=== PATIENT | female | born 1935 | race Caucasian/White ===

== ENCOUNTER 2018-09-19 19:51 | Inpatient (IN) | payer MEDICARE, MEDICAID ==
[~2018-09-19] VITALS: Ht 160 cm; Wt 38.1 kg
[2018-09-19] MEDS ORDERED: MAGN400O6 PO (20:02)
[2018-09-19] MEDS ORDERED: BISA10SU61 RC (20:02)
[2018-09-19] MEDS ORDERED: MEMA5TAB PO (20:02)
[2018-09-19] MEDS ORDERED: ACET-2154 PO (20:02)
[2018-09-19] MEDS ORDERED: MIRT15TA PO (20:02)
[2018-09-19] MEDS ORDERED: DOCU-141 PO (20:02)
[2018-09-19] MEDS ORDERED: ACET650S24 RC (20:02)
[2018-09-19] MEDS ORDERED: POTA-10 PO (20:02)
[2018-09-19] MEDS ORDERED: ERGO500040 PO (20:03)
--- NOTE | 2018-09-19 20:14 | NUR ---
Patient BIB [facility] unit [facility] from [facility] on 5150 hold for GD. Patient upon arrival unpleasant, refusing to have any procedure done. No distress noted.
[2018-09-19 20:42] LABS: *BILIRUBIN,URIN 1+ (NEGATIVE); *BLOOD, URINE NEGATIVE (NEGATIVE); *CLARITY,URINE SLIGHTLY CLOUDY (CLEAR); *KETONES,URINE TRACE (NEGATIVE); *UROBILINOGEN,URINE 0.2 E.U./dl (NORMAL); LEUKOCYTE ESTERASE ,URINE 2+ (NEGATIVE); NITRITE, URINE POSITIVE (NEGATIVE); UGLUCOSE NEGATIVE (NEGATIVE)
--- NOTE | 2018-09-19 20:43 | NUR ---
Patient refusing blood draw. Dr Sotomayor aware. Paged Eppic panel. Waiting for Selin Niño NP to call back.
--- NOTE | 2018-09-19 20:52 | NUR ---
Kong ruelas in EDM - 09/19/18 at 2104 by [id number] Selin Niño NP from [facility] group here to eval patient and speak to DR Pham. Olmos to admit MHU without blood
--- NOTE | 2018-09-19 20:52 | NUR ---
Selin Niño NP from [facility] group here to eval patient and speak to Dr Sotomayor. [place] HOLGUIN ok to admit patient to MHU without blood work being done in the ER due to patient refusing any procedure done
[2018-09-19 20:55] LABS: *COLOR,URINE DARK YELLOW (YELLOW)
[2018-09-19 20:57] LABS: SQUAMOUS EPITHELIAL CELL,UR FEW /HPF (NONE SEEN); WBC,URINE 50-80 /HPF (0-3)
[2018-09-19 20:58] LABS: BACTERIA,URINE MANY /HPF (NONE SEEN); MUCUS,URINE MODERATE /LPF (0-FEW)
[2018-09-19 21:00] LABS: *AMPHETAMINE, URINE NEGATIVE (NEGATIVE); *BARBITURATE, URINE NEGATIVE (NEGATIVE); *CANNABINOID, URINE NEGATIVE (NEGATIVE); *COCCAINE, URINE NEGATIVE (NEGATIVE); *OPIATE, URINE NEGATIVE (NEGATIVE); *PHENCYCLIDINE SCREEN,URINE NEGATIVE (NEGATIVE)
[2018-09-19] MEDS ORDERED: SULFAMETH/TRIMETH 800/160 MG TABLET PO ONE (21:00)
--- NOTE | 2018-09-19 21:03 | NUR ---
Patient refused PO antibiotic. Dr Sotomayor Aware
--- NOTE | 2018-09-19 21:25 | NUR ---
TRANSFERED TO [facility]
--- NOTE | 2018-09-19 21:45 | NUR ---
Admission note: Received patient from ED via gurney. Awake and alert but confused. States she " Lives in the dorms at her school". When asked if anyone to notify , patient stated ' No I do not have any family'. Patient calm and cooperative so far. No acute distress noted. Will monitor for safety and continue to reorient patient to the environment.
[2018-09-19] MEDS ORDERED: MAG HYDROX/AL HYDROX/SIMETH 30 ML LIQUID UDC PO PRN (22:00)
[2018-09-19] MEDS ORDERED: MAGNESIUM HYDROXIDE 30 ML LIQUID UDC PO PRN (22:00)
[2018-09-19] MEDS ORDERED: ACETAMINOPHEN 325 MG TABLET PO PRN (22:00)
[2018-09-19] MEDS ORDERED: TEMAZEPAM 7.5 MG CAPSULE PO PRN (22:00)
[2018-09-20 07:30] VITALS: BP 111/51
[2018-09-20] MEDS ORDERED: BISACODYL 10 MG SUPP.RECT RC PRN (09:30)
[2018-09-20 09:31] LABS: CARBON DIOXIDE 24 mmol/L (21-32); CHLORIDE 114 mmol/L (98-107); CREATININE 1.3 mg/dL (0.6-1.3); GLUCOSE 90 mg/dL (74-106); UREA NITROGEN, BLOOD 18 mg/dL (7-18)
[2018-09-20 09:32] LABS: BASOPHILS # (AUTO) 0.1 K/uL (0.0-8.0); BASOPHILS % (AUTO) 1.7 % (0.0-2.0); EOSINOPHILS # (AUTO) 0.3 K/uL (0.0-0.7); EOSINOPHILS % (AUTO) 6.6 % (0.0-7.0); HEMATOCRIT 40.2 % (31.2-41.9); LYMPHOCYTES # (AUTO) 0.9 K/uL (20.0-40.0); LYMPHOCYTES % (AUTO) 22.7 % (20.5-51.5); MEAN CORPUSCULAR HGB CONC 32 g/dL (32.3-35.6); MEAN CORPUSCULAR VOLUME 86.4 fL (75.5-95.3); MONOCYTES # (AUTO) 0.4 K/uL (2.0-10.0); MONOCYTES % (AUTO) 10.9 % (0.0-11.0); NEUTROPHILS # (AUTO) 2.3 K/uL (1.8-8.9); NEUTROPHILS % (AUTO) 58.1 % (38.5-71.5); PLATELET COUNT (AUTO) 198 K/uL (179-408); RED BLOOD CELL COUNT(AUTO) 4.66 MIL/uL (3.63-4.92)
[2018-09-20 09:37] LABS: ALANINE AMINOTRANSFERASE 13 U/L (14-59); ALKALINE PHOSPHATASE 73 U/L (50-136); ASPARTATE AMINOTRANSFERASE 18 U/L (15-37); TOTAL PROTEIN, SERUM 6.7 g/dL (6.4-8.2)
[2018-09-20] MEDS: LORAZEPAM 0.5 MG TABLET PO PRN (10:21)
[2018-09-20] MEDS: DOCUSATE SODIUM 100 MG CAPSULE PO SCH (10:21)
--- NOTE | 2018-09-20 12:50 | NUR ---
Gps/Drama Therapist- Stayed up on her recliner chair by the Nurses stations, interacting with the staff, assisted with her meal, poor intake, ensure supplent offered., Likes to drink soda, tried to offered fluids patient sips at a time. Was able to take routine meds. with min. prompting. Complained of lower ext. discomfort, rigid ,stiff lower ext.
--- NOTE | 2018-09-20 13:36 | NUR ---
Gps/Gear Tester- Max assist 2 staff assisting patient during her shower transfers, difficulty standing, per patient she always stays on her wheel chair at the facility where she was. Safety continue to emphasized. Offered fluids, poor intake.
--- NOTE | 2018-09-20 15:52 | NUR ---
Gps/Agricultural Education Professor- Noted patient was talking to herself, when asked who she talking to, claimed no one.
[2018-09-20 16:00] VITALS: BP 96/57
--- NOTE | 2018-09-20 19:25 | NUR ---
Received patient awake, lying in bed. Pleasant upon approach and compliant with medications. No complaints at the moment. Will continue to monitor.
[2018-09-20] MEDS: CEphaleXIN 500 MG CAPSULE PO SCH (20:37)
[2018-09-20] MEDS: MIRTAZAPINE 15 MG TABLET PO SCH (20:38)
[2018-09-20 20:50] VITALS: BP 119/65
[2018-09-21 07:30] VITALS: BP 116/44
[2018-09-21] MEDS: CEphaleXIN 500 MG CAPSULE PO SCH ×2 (10:34→21:17)
[2018-09-21] MEDS: DOCUSATE SODIUM 100 MG CAPSULE PO SCH (10:34)
--- NOTE | 2018-09-21 10:46 | NUR ---
Gps/Supervisor [employer]- Assisted with meals, poor initiation, poor intake, likes sips of soda, compliant with routine po. meds. fluids offered encouraged, reoffered couple of time.
--- NOTE | 2018-09-21 11:38 | NUR ---
Gps/Local Area Network Administrator- Informed Robert Niño DNP, pt. has poor appetite, poor intake, orders received .
[2018-09-21] MEDS: MEGESTROL ACETATE 400 MG/10 ML LIQUID UDC PO SCH ×2 (14:22→21:17)
--- NOTE | 2018-09-21 14:27 | NUR ---
Gps/Reel Winder- Irritable, angry, calling staff names, spitting out medications. Fluids continue to offer., has poor intake
[2018-09-21 15:51] VITALS: BP 116/61
--- NOTE | 2018-09-21 19:20 | NUR ---
RECEIVED PT CRYING ON A CHAIR. WHEN ASKED WHY SHE IS CRYING SHE SAID"I DON'T KNOW." PT SITTING QUIETLY ON A CHAIR. PLEASANT WHEN APPROACH. SAFETY AND COMFORT PROVIDED. WILL CONTINUE TO MONITOR.
[2018-09-21] MEDS: MIRTAZAPINE 15 MG TABLET PO SCH (21:17)
--- NOTE | 2018-09-22 06:25 | NUR ---
PT SLEPT 4.3 HOURS. PT SHOWS NO SIGNS OF ACUTE DISTRESS. PT GIVEN 2337H RESTORIL. PT TOLERATED IT WELL. PT AT 0140H PT GOT CONFUSED AND ASKING WHERE SHE IS, WHY SHE WAS HERE IN OUR HOSPITAL. NEEDS REORIENTATION. PT DOESN'T WANT TO CHANGE HER DIAPER. SAFETY AND COMFORT PROVIDED. WILL ENDORSE ACCORDINGLY TO INCOMING NURSE FOR CONTINUITY OF CARE.
[2018-09-22 07:33] LABS: CARBON DIOXIDE 25 mmol/L (21-32); CHLORIDE 112 mmol/L (98-107); CREATININE 1.2 mg/dL (0.6-1.3); GLUCOSE 92 mg/dL (74-106); POTASSIUM 3.5 mmol/L (3.5-5.1); UREA NITROGEN, BLOOD 20 mg/dL (7-18)
[2018-09-22] MEDS: MEGESTROL ACETATE 400 MG/10 ML LIQUID UDC PO SCH ×3 (09:11→21:00)
[2018-09-22] MEDS: DOCUSATE SODIUM 100 MG CAPSULE PO SCH (09:11)
[2018-09-22] MEDS: CEphaleXIN 500 MG CAPSULE PO SCH ×3 (09:11→21:00)
[2018-09-22] MEDS: LORAZEPAM 0.5 MG TABLET PO PRN (09:16)
--- NOTE | 2018-09-22 11:32 | NUR ---
Initial Discharge Plan: Patient is a 83 year old female who is currently a long-term resident at [facility] [[address] [place] [address]; ]. Per admissions Meera blake, patient will be able to return when ready. dry house worker has called and left a voicemail for patient son, Wayne Gaming [ ]. dry house worker will continue to collaborate with MD and patient on a safe and proper discharge.
[2018-09-22 15:47] VITALS: BP 102/50
[2018-09-22 20:06] VITALS: BP 97/47
[2018-09-22] MEDS: MIRTAZAPINE 15 MG TABLET PO SCH ×2 (20:32→21:00)
[2018-09-22] MEDS: DIVALPROEX SPRINKLE 125 MG CAP.SPRINK PO SCH ×2 (20:32→21:00)
[2018-09-23 07:30] VITALS: BP 107/44
[2018-09-23] MEDS: LORAZEPAM 0.5 MG TABLET PO PRN (07:55)
[2018-09-23] MEDS: DOCUSATE SODIUM 100 MG CAPSULE PO SCH (08:08)
[2018-09-23] MEDS: CEphaleXIN 500 MG CAPSULE PO SCH ×2 (08:08→20:38)
[2018-09-23] MEDS: DIVALPROEX SPRINKLE 125 MG CAP.SPRINK PO SCH ×2 (08:08→20:38)
[2018-09-23] MEDS: MEGESTROL ACETATE 400 MG/10 ML LIQUID UDC PO SCH ×2 (08:08→20:46)
[2018-09-23 15:37] VITALS: BP 125/62
[2018-09-23 20:02] VITALS: BP 132/73
[2018-09-23] MEDS: MIRTAZAPINE 15 MG TABLET PO SCH (20:38)
--- NOTE | 2018-09-23 22:00 | NUR ---
received to care, up in w/c, propelling self around unit, talking to self. compliant with medications, with some encouragement. as of 2199, she remains awake, but in bed. will continue to monitor closely.
--- NOTE | 2018-09-23 23:00 | NUR ---
pt was placed in the bill chair for safety,after repeated attempts to get out of bed. PRN medication offered for insomnia or anxiety, but she refused. currently at nurses station, sitting quietly. will continue to monitor closely.
[2018-09-24 07:30] VITALS: BP 121/54
[2018-09-24] MEDS: DIVALPROEX SPRINKLE 125 MG CAP.SPRINK PO SCH ×2 (09:49→21:58)
[2018-09-24] MEDS: DOCUSATE SODIUM 100 MG CAPSULE PO SCH (09:50)
[2018-09-24] MEDS: CEphaleXIN 500 MG CAPSULE PO SCH ×2 (09:50→21:58)
[2018-09-24] MEDS: MEGESTROL ACETATE 400 MG/10 ML LIQUID UDC PO SCH ×2 (09:50→21:58)
[2018-09-24] MEDS: LORAZEPAM 0.5 MG TABLET PO PRN (09:50)
[2018-09-24 16:00] VITALS: BP 104/50
[2018-09-24 20:17] VITALS: BP 101/67
[2018-09-24] MEDS: MIRTAZAPINE 15 MG TABLET PO SCH (21:58)
--- NOTE | 2018-09-24 23:00 | NUR ---
received to care, asleep in bed. was able to be awakened, but falls right back to sleep, after being engaged. all medications were held. as of 2299, she remains asleep. no distress noted. will continue to monitor closely.
[2018-09-25 07:30] VITALS: BP 115/45
[2018-09-25] MEDS: DOCUSATE SODIUM 100 MG CAPSULE PO SCH (08:11)
[2018-09-25] MEDS: MEGESTROL ACETATE 400 MG/10 ML LIQUID UDC PO SCH ×2 (08:12→21:00)
[2018-09-25] MEDS: DIVALPROEX SPRINKLE 125 MG CAP.SPRINK PO SCH (08:12)
[2018-09-25] MEDS: CEphaleXIN 500 MG CAPSULE PO SCH (08:12)
[2018-09-25 15:52] LABS: BASOPHILS % (AUTO) 0.8 % (0.0-2.0); EOSINOPHILS # (AUTO) 0.2 K/uL (0.0-0.7); EOSINOPHILS % (AUTO) 4.2 % (0.0-7.0); HEMATOCRIT 41.1 % (31.2-41.9); HEMOGLOBIN 13.3 g/dL (10.9-14.3); LYMPHOCYTES # (AUTO) 0.6 K/uL (20.0-40.0); LYMPHOCYTES % (AUTO) 17.4 % (20.5-51.5); MEAN CORPUSCULAR HEMOGLOBIN 28.1 uug (24.7-32.8); MEAN CORPUSCULAR HGB CONC 33 g/dL (32.3-35.6); MEAN CORPUSCULAR VOLUME 86.6 fL (75.5-95.3); MONOCYTES # (AUTO) 0.2 K/uL (2.0-10.0); MONOCYTES % (AUTO) 6.7 % (0.0-11.0); NEUTROPHILS # (AUTO) 2.6 K/uL (1.8-8.9); NEUTROPHILS % (AUTO) 70.9 % (38.5-71.5); PLATELET COUNT (AUTO) 178 K/uL (179-408); RED BLOOD CELL COUNT(AUTO) 4.74 MIL/uL (3.63-4.92); WHITE BLOOD COUNT (AUTO) 3.7 K/uL (3.8-11.8)
[2018-09-25 15:59] LABS: CARBON DIOXIDE 29 mmol/L (21-32); CHLORIDE 111 mmol/L (98-107); CREATININE 1.3 mg/dL (0.6-1.3); GLUCOSE 101 mg/dL (74-106); PHOSPHOROUS 3.7 mg/dL (2.5-4.9); POTASSIUM 3.5 mmol/L (3.5-5.1); UREA NITROGEN, BLOOD 24 mg/dL (7-18)
[2018-09-25 16:00] VITALS: BP 108/45
--- NOTE | 2018-09-25 17:00 | NUR ---
at this time report of no diaper change with urine. Patient's bladder scanned X2 with help of charge R.N. and no retention reading obtained.
--- NOTE | 2018-09-25 18:15 | NUR ---
Attending N.P. called to be notified of pt's lack of voiding and bladder scan results. Awaiting call back and will endorse to incoming shift.
--- NOTE | 2018-09-25 18:30 | NUR ---
A call back from Attending N.P. and orders to continue monitoring urine output and morning labs orders received. Labs ordered in from this morning by (psych and nephro consultants). See order history.
[2018-09-25] MEDS ORDERED: MIRTAZAPINE 15 MG TABLET PO SCH (20:00)
--- NOTE | 2018-09-25 22:00 | NUR ---
received to care, lying in bed, pleasant upon approach. compliant with medications and staff direction. po fluids encouraged / pt took 240 ml of juice, and some pudding, with assist. still no void. currently asleep. no distress noted. will continue to monitor closely.
--- NOTE | 2018-09-26 01:50 | NUR ---
still no void. bladder scan was performed, showing 236 ml. no bladder distension noted. denies pain or distress. will continue to monitor closely.
--- NOTE | 2018-09-26 06:44 | NUR ---
still no void. bladder scan was performed, showing 293 ml. no bladder distension noted. denies pain or distress. will continue to monitor closely. issue to be endorsed to oncoming shift.
[2018-09-26 07:30] VITALS: BP 99/40
[2018-09-26] MEDS: DOCUSATE SODIUM 100 MG CAPSULE PO SCH (09:00)
[2018-09-26] MEDS: MEGESTROL ACETATE 400 MG/10 ML LIQUID UDC PO SCH ×2 (09:00→20:22)
[2018-09-26] MEDS: DIVALPROEX SPRINKLE 125 MG CAP.SPRINK PO SCH ×2 (09:00→16:13)
[2018-09-26 19:50] VITALS: BP 126/60
[2018-09-26] MEDS: OLANZAPINE 2.5 MG TABLET PO SCH (20:00)
--- NOTE | 2018-09-27 05:43 | NUR ---
GPS: Remain uncooperative po intake, compliant with care. assisted with adl's. refused all meds through the shift. slept 4:30 hrs through the shift. continue monitor for safety.
[2018-09-27 07:30] VITALS: BP 116/44
[2018-09-27] MEDS: MEGESTROL ACETATE 400 MG/10 ML LIQUID UDC PO SCH ×2 (09:00→20:18)
[2018-09-27] MEDS: DOCUSATE SODIUM 100 MG CAPSULE PO SCH (09:00)
[2018-09-27] MEDS: DIVALPROEX SPRINKLE 125 MG CAP.SPRINK PO SCH ×2 (09:00→17:00)
--- NOTE | 2018-09-27 18:22 | NUR ---
GPS: Nursing Notes: Non-Compliant with Medications: Patient is awake and responding to her name, believes that her room is her house, poor anger management, gets easily irritable when redirected, impaired judgment, refusing her medications, episodes of cheeking her medications, stating "I swallow them..", but spitting them out into her hand and hiding them under the blanket, stating "I do not need them... You take them...", poor anger management, resistant with nursing care, unable to formulate a plan for self care, continue with treatment plan.
[2018-09-27] MEDS: OLANZAPINE 2.5 MG TABLET PO SCH (20:00)
[2018-09-27 20:40] VITALS: BP 133/53
--- NOTE | 2018-09-28 05:54 | NUR ---
GPS: Remain uncooperative with meds, compliant with care. assisted with adl's. slept 6 hrs through the shift. no agitation noted at this time. continue to monitor for safety.
[2018-09-28 07:30] VITALS: BP 100/47
[2018-09-28 08:14] LABS: BASOPHILS % (AUTO) 0.9 % (0.0-2.0); EOSINOPHILS # (AUTO) 0.2 K/uL (0.0-0.7); EOSINOPHILS % (AUTO) 6.1 % (0.0-7.0); HEMATOCRIT 40.1 % (31.2-41.9); HEMOGLOBIN 13.3 g/dL (10.9-14.3); LYMPHOCYTES # (AUTO) 1.1 K/uL (20.0-40.0); MEAN CORPUSCULAR HEMOGLOBIN 28.8 uug (24.7-32.8); MEAN CORPUSCULAR HGB CONC 33 g/dL (32.3-35.6); MEAN CORPUSCULAR VOLUME 87.1 fL (75.5-95.3); MONOCYTES # (AUTO) 0.5 K/uL (2.0-10.0); MONOCYTES % (AUTO) 12.4 % (0.0-11.0); NEUTROPHILS # (AUTO) 1.9 K/uL (1.8-8.9); NEUTROPHILS % (AUTO) 50.6 % (38.5-71.5); PLATELET COUNT (AUTO) 156 K/uL (179-408); WHITE BLOOD COUNT (AUTO) 3.8 K/uL (3.8-11.8)
[2018-09-28] MEDS: MEGESTROL ACETATE 400 MG/10 ML LIQUID UDC PO SCH ×2 (08:51→20:04)
[2018-09-28] MEDS: DOCUSATE SODIUM 100 MG CAPSULE PO SCH (08:51)
[2018-09-28] MEDS: DIVALPROEX SPRINKLE 125 MG CAP.SPRINK PO SCH ×2 (08:51→16:59)
[2018-09-28 09:28] LABS: ALANINE AMINOTRANSFERASE 19 U/L (14-59); ALKALINE PHOSPHATASE 81 U/L (50-136); ASPARTATE AMINOTRANSFERASE 20 U/L (15-37); CARBON DIOXIDE 28 mmol/L (21-32); CHLORIDE 112 mmol/L (98-107); GLUCOSE 89 mg/dL (74-106); PHOSPHOROUS 3.1 mg/dL (2.5-4.9); POTASSIUM 5.1 mmol/L (3.5-5.1); TOTAL PROTEIN, SERUM 6.7 g/dL (6.4-8.2); UREA NITROGEN, BLOOD 18 mg/dL (7-18); VALPROIC ACID 6 ug/mL (50-100)
[2018-09-28 10:31] LABS: CREATININE 1.3 mg/dL (0.6-1.3)
--- NOTE | 2018-09-28 12:01 | NUR ---
GPS: Nursing Notes: Thought Disorder: Patient is awake and responding to her name, uncooperative with nursing care, poor anger management, shouting to her roommate, using profanities toward roommate, "Shout the fuck up..", resistant with nursing care by pushing and trying to scratch staff when assisting her, smear feces on her sheets and her body, covering herself with duty sheets, "Leave me alone.. It is not your business..", angry affect, threw her feces on the floor, believes that she is in her house, believes that she is living in a garage, redirected and reoriented to reality during shift, but believes that staff is lying to her, shouting to staff, "Get out of my house..Now..", patient showered and EVS cleaned the room, A/Ox1, impaired judgment, poor insight, gets easily irritable when redirected, unable to formulate a viable plan for self care, continue to refuse her medications, continue with treatment plan.
[2018-09-28 16:00] VITALS: BP 93/40
[2018-09-28 19:46] VITALS: BP 105/43
[2018-09-28] MEDS: OLANZAPINE 2.5 MG TABLET PO SCH (20:00)
--- NOTE | 2018-09-29 05:56 | NUR ---
GPS: Remain uncooperative with meds. easily gets agitated. assisted with adl's. slept 8 hrs through the shift. no agitation noted at this time. continue to monitor for safety. Addendum: 09/29/18 at 0558 by DANILO SAEED LVN refused all meds.
[2018-09-29] MEDS: MEGESTROL ACETATE 400 MG/10 ML LIQUID UDC PO SCH ×2 (08:17→20:38)
[2018-09-29] MEDS: DIVALPROEX SPRINKLE 125 MG CAP.SPRINK PO SCH ×2 (08:17→16:21)
[2018-09-29] MEDS: DOCUSATE SODIUM 100 MG CAPSULE PO SCH (08:17)
[2018-09-29] MEDS ORDERED: OLANZAPINE 10 MG VIAL IM ONE (08:45)
--- NOTE | 2018-09-29 08:45 | NUR ---
GPS: Nursing Notes: Severe Agitation: Patient is A/Ox1, poor anger management, threatening staff, kicking staff, trying to scratch staff when assisting her with her ADL's, uncooperative, loud and angry affect, "Get the hell out of here..", restless, redirected and reoriented to reality, but unable to follow directions, resistant with nursing care, continue with treatment plan.
--- NOTE | 2018-09-29 08:55 | NUR ---
GPS: Nursing Notes: Chemical Restraint: Patient is A/Ox1, continue to be agitated, refusing PO medications, refusing to eat, loud and angry affect, trying to scratch staff, trying to bite the security, restless, unable to be redirected, Dr. Echeverria ordered: Zyprexa 2.5mg IM STAT, medication given at this time, R=18, continue to monitor for safety, continue with treatment plan.
--- NOTE | 2018-09-29 09:25 | NUR ---
GPS: Nursing Notes: Reassessment of Chemical Restraint: Patient is A/Ox1, continue to refuse her PO medications, but she is less angry, nonviolent toward staff, continue to cover her head with her blanket, R=18, continue to monitor for safety, medication IM was effective, continue with treatment plan.
--- NOTE | 2018-09-29 11:59 | NUR ---
Windows Desktop Engineer completed and submitted a [employer] firearms report for [address] Disability certification. A copy has been placed in patient chart.
[2018-09-29 15:43] VITALS: BP 101/63
[2018-09-29] MEDS: OLANZAPINE 2.5 MG TABLET PO SCH (20:00)
[2018-09-29 20:12] VITALS: BP 109/54
--- NOTE | 2018-09-29 23:30 | NUR ---
received to care, up in bill chair for safety, pleasant upon approach, compliant with snacks and fluids, but refused all medications, offered. as of 2329, she appears to be asleep. in bed. no distress noted. will continue to monitor closely.
--- NOTE | 2018-09-30 06:00 | NUR ---
slept 5.5 hours total
[2018-09-30 07:30] VITALS: BP 92/63
[2018-09-30] MEDS: DIVALPROEX SPRINKLE 125 MG CAP.SPRINK PO SCH ×2 (09:00→16:15)
[2018-09-30] MEDS: DOCUSATE SODIUM 100 MG CAPSULE PO SCH (09:00)
[2018-09-30] MEDS: MEGESTROL ACETATE 400 MG/10 ML LIQUID UDC PO SCH ×2 (09:00→21:00)
[2018-09-30] MEDS: IV 1/2NS 1000 ML 1,000 ML IV SCH (13:00)
[2018-09-30 15:08] VITALS: BP 102/54
[2018-09-30] MEDS: OLANZAPINE 2.5 MG TABLET PO SCH (20:00)
[2018-09-30 20:11] VITALS: BP 106/54
--- NOTE | 2018-10-01 07:02 | NUR ---
received to care last night, up in bill chair, verbally hostile, upon approach. refused all medications, but took po fluids, and snacks. asisted to bed around 2 am, butr did not sleep, all night. appeared distracted by internal stimuli, at times. will continue to monitor closely.
--- NOTE | 2018-10-01 08:15 | NUR ---
Pt.in room eating breakfast ,cooperative was compl.with medication.denies any pain @ time.
[2018-10-01] MEDS: MEGESTROL ACETATE 400 MG/10 ML LIQUID UDC PO SCH ×2 (08:22→20:34)
[2018-10-01] MEDS: DOCUSATE SODIUM 100 MG CAPSULE PO SCH (08:22)
[2018-10-01] MEDS: DIVALPROEX SPRINKLE 125 MG CAP.SPRINK PO SCH ×2 (08:22→16:20)
[2018-10-01] MEDS: LORAZEPAM 0.5 MG TABLET PO PRN (08:22)
[2018-10-01] MEDS: IV 1/2NS 1000 ML 1,000 ML IV SCH (11:14)
--- NOTE | 2018-10-01 14:30 | NUR ---
Son on the phone,was updated with pt.condition and plan of care.
[2018-10-01 16:00] VITALS: BP 105/44
[2018-10-01] MEDS ORDERED: OLANZAPINE 10 MG VIAL IM PRN (17:15)
--- NOTE | 2018-10-01 18:00 | NUR ---
Pt.more cooperative was agree to drink ensure,was assisted with,more interacting.
[2018-10-01 20:00] VITALS: BP 100/44
[2018-10-01] MEDS: OLANZAPINE 2.5 MG TABLET PO SCH (20:35)
[2018-10-01 20:58] VITALS: BP 125/46
--- NOTE | 2018-10-01 22:00 | NUR ---
received to care, lying in bed, isolative, but pleasant upon approach. b/p was initially 100/44, heart rate 88. po fluids and snacks were given, and b/p went up slightly, but bedtime medications were held by this policy writer sales. as of 0 she appears to be asleep. no distress noted. will continue to monitor closely.
--- NOTE | 2018-10-02 06:00 | NUR ---
did not sleep last night. remains in bed, and calm. no distress noted.
[2018-10-02] MEDS: OLANZAPINE 2.5 MG TABLET PO SCH ×2 (09:00→20:27)
[2018-10-02] MEDS: DIVALPROEX SPRINKLE 125 MG CAP.SPRINK PO SCH ×2 (09:00→17:17)
[2018-10-02] MEDS: MEGESTROL ACETATE 400 MG/10 ML LIQUID UDC PO SCH ×2 (09:00→20:28)
[2018-10-02] MEDS: DOCUSATE SODIUM 100 MG CAPSULE PO SCH (09:00)
[2018-10-02] MEDS: IV 1/2NS 1000 ML 1,000 ML IV SCH (09:28)
[2018-10-02] MEDS ORDERED: IV 1/2NS 1000 ML 1,000 ML IV PRN (10:22)
[2018-10-02 16:00] VITALS: BP 100/47
[2018-10-02 20:00] VITALS: BP 90/63
--- NOTE | 2018-10-03 06:02 | NUR ---
GPS: Remain calm and cooperative with meds, compliant with care. assisted with adl's. slept 7.5 hrs through the shift. no agitation noted at this time. continue to monitor for safety.
--- NOTE | 2018-10-03 07:40 | NUR ---
patient is in bed, no asleep, no acute distress noted
[2018-10-03] MEDS: DIVALPROEX SPRINKLE 125 MG CAP.SPRINK PO SCH ×3 (09:02→17:00)
[2018-10-03] MEDS: DOCUSATE SODIUM 100 MG CAPSULE PO SCH (09:02)
[2018-10-03] MEDS: OLANZAPINE 2.5 MG TABLET PO SCH ×2 (09:02→21:06)
[2018-10-03] MEDS: MEGESTROL ACETATE 400 MG/10 ML LIQUID UDC PO SCH ×2 (09:03→21:07)
--- NOTE | 2018-10-03 18:11 | NUR ---
LEONIDAS IS IN BED, GOOD PERICARE, ORALCARE PROVIDED, HITTING, SCRATCHING DURING CARE, REFUSED TO CHANGE HER TOP, COMPLIANT WITH MORNING MEDS, TOOK ORALLY, HOWEVER REFUSED EVENING MEDICAITON, DID NOT EAT OR DRINK MUCH, POOR PO INTAKE, VITALS WNL BP 120/60, PULSE 77, RESP 18, TEMP 97.8, O2 SAT AT ROOM AIR 95%,
[2018-10-03 20:30] VITALS: BP 125/56
[2018-10-04 07:30] VITALS: BP 90/51
[2018-10-04] MEDS: MEGESTROL ACETATE 400 MG/10 ML LIQUID UDC PO SCH ×2 (08:28→20:15)
[2018-10-04] MEDS: OLANZAPINE 2.5 MG TABLET PO SCH ×2 (08:28→20:14)
[2018-10-04] MEDS: DIVALPROEX SPRINKLE 125 MG CAP.SPRINK PO SCH ×2 (08:28→17:00)
[2018-10-04] MEDS: DOCUSATE SODIUM 100 MG CAPSULE PO SCH (08:29)
[2018-10-04 15:27] VITALS: BP 106/40
[2018-10-04 19:53] VITALS: BP 104/52
[2018-10-05 07:30] VITALS: BP 112/56
--- NOTE | 2018-10-05 07:58 | NUR ---
PATIENT IS LAYING IN BED, NO SOB, RESP EVEN NONLABORED, SKIN WARM AND DRY TO TOUCH, NO ACUTE DISTRESS NOTED AT THIS TIME
[2018-10-05] MEDS: DOCUSATE SODIUM 100 MG CAPSULE PO SCH (08:22)
[2018-10-05] MEDS: DIVALPROEX SPRINKLE 125 MG CAP.SPRINK PO SCH ×2 (08:22→17:02)
[2018-10-05] MEDS: MEGESTROL ACETATE 400 MG/10 ML LIQUID UDC PO SCH ×2 (08:23→21:46)
[2018-10-05] MEDS: OLANZAPINE 2.5 MG TABLET PO SCH ×2 (08:23→20:20)
--- NOTE | 2018-10-05 15:24 | NUR ---
patient is alert to self, no sob, respirations are even nonlabored,skin warm and dry to touch, no acute distress noted, patient took her medications with food and swallowed them well, patient seems more awake, alert, able to verbalize some needs, sitting in gerichair, all needs attended, continue to monitor for safety, good perineal, and oral care provided.
[2018-10-05 16:00] VITALS: BP 116/36
[2018-10-05 20:37] VITALS: BP 112/53
[2018-10-06 07:30] VITALS: BP 112/52
[2018-10-06] MEDS: DIVALPROEX SPRINKLE 125 MG CAP.SPRINK PO SCH ×2 (08:22→16:41)
[2018-10-06] MEDS: DOCUSATE SODIUM 100 MG CAPSULE PO SCH (08:22)
[2018-10-06] MEDS: MEGESTROL ACETATE 400 MG/10 ML LIQUID UDC PO SCH ×2 (08:22→20:53)
[2018-10-06] MEDS: OLANZAPINE 2.5 MG TABLET PO SCH ×2 (08:23→20:53)
[2018-10-06 16:00] VITALS: BP 104/53
[2018-10-06 20:28] VITALS: BP 101/50
[2018-10-07 07:30] VITALS: BP 139/69
--- NOTE | 2018-10-07 08:52 | NUR ---
Discharge Note: Patient will be discharged to back to [facility] [[address] [place] [address]; ] and transportation will be provided by ambulance at 1:00pm. Please arrange ambulance transportation for this patient. Acceptance to facility was received by artemio Estes, who states they are ready to accept the patient today. Patient is AxOx1, denies suicidal ideation, is able to plan for self-care, and is agreeable with discharge plan. worker's compensation claims examiner has called and spoken with patient son, Wayne Gaming [[phone]], who is aware and agreeable with discharge plan. Patient will be followed by Dr. Guillen (used car make ready worker) and Dr. Pierce (psychiatrist) at the facility. Patient has also been provided with mental health resources including [facility] Crisis Line [ ], [facility] [ ], and the National Suicide Prevention Lifeline [ ]
[2018-10-07] MEDS: DOCUSATE SODIUM 100 MG CAPSULE PO SCH (09:00)
[2018-10-07] MEDS: MEGESTROL ACETATE 400 MG/10 ML LIQUID UDC PO SCH ×2 (09:00→20:17)
[2018-10-07] MEDS: OLANZAPINE 2.5 MG TABLET PO SCH ×2 (09:51→20:19)
[2018-10-07] MEDS: DIVALPROEX SPRINKLE 125 MG CAP.SPRINK PO SCH ×2 (09:51→17:29)
--- NOTE | 2018-10-07 14:00 | NUR ---
Patient calm, was able to eat breakfast and lunch. Routine discharge care done. report given to Milla/RN of [facility]. Patient aware of discharge and know she is going back to her former facility.
--- NOTE | 2018-10-07 15:30 | NUR ---
Patient was agitated and refused to be put in the gurney to be discharged to [facility]. Patient got agitated and hit LEAD SETTERDr Stan Reddy aware and observed behavior. said to hold discharge for now.
[2018-10-07 15:41] VITALS: BP 107/59
[2018-10-07] MEDS: risperiDONE 0.25 MG TABLET PO SCH (17:29)
[2018-10-07 20:42] VITALS: BP 115/54
--- NOTE | 2018-10-07 23:00 | NUR ---
received to care, up in bill chair, talking to self, but pleasant upon approach. compliant with medications, snacks, fluids, and staff direction. was assisted to bed at 2230, as of 2300, she remains awake. no distress noted.
--- NOTE | 2018-10-07 23:30 | NUR ---
attempted to climb out of bed, for no apparent reason. assited back up in the bill chair at nurses desk, for safety.
--- NOTE | 2018-10-08 02:10 | NUR ---
has been sleeping intermittently, over the past few hours. as of this time, she appears asleep. no distress noted.
[2018-10-08 07:30] VITALS: BP 127/70
--- NOTE | 2018-10-08 07:30 | NUR ---
RECIEVED PT LYING IN BED VERY SOUND ASLEEP. AOUSABLE TO CALL AND PT IS COOPERATIVE. REFUSED HIS BREAKFAST THIS MORNING.
--- NOTE | 2018-10-08 09:00 | NUR ---
DR ATKINS CALLED AND ORDERED LABS FOR THE PT. DRAWN BY [employer]. PT IS COOPERATIVE. PT ABLE TO TAKE HER MEDS CRASHED AND WITH APPLE SAUCE. SWALLOWING IS GOOD. BUT PT CONTINUES TO SLEEP.
[2018-10-08] MEDS: DIVALPROEX SPRINKLE 125 MG CAP.SPRINK PO SCH ×3 (09:41→21:06)
[2018-10-08] MEDS: DOCUSATE SODIUM 100 MG CAPSULE PO SCH (09:41)
[2018-10-08] MEDS: OLANZAPINE 2.5 MG TABLET PO SCH (09:41)
[2018-10-08] MEDS: risperiDONE 0.25 MG TABLET PO SCH ×2 (09:41→21:05)
[2018-10-08] MEDS: MEGESTROL ACETATE 400 MG/10 ML LIQUID UDC PO SCH ×2 (09:41→21:00)
[2018-10-08 09:49] LABS: BASOPHILS % (AUTO) 0.8 % (0.0-2.0); EOSINOPHILS # (AUTO) 0.2 K/uL (0.0-0.7); EOSINOPHILS % (AUTO) 5.4 % (0.0-7.0); HEMATOCRIT 35.4 % (31.2-41.9); HEMOGLOBIN 11.7 g/dL (10.9-14.3); LYMPHOCYTES # (AUTO) 0.6 K/uL (20.0-40.0); LYMPHOCYTES % (AUTO) 17.3 % (20.5-51.5); MEAN CORPUSCULAR HEMOGLOBIN 28.8 uug (24.7-32.8); MEAN CORPUSCULAR HGB CONC 33 g/dL (32.3-35.6); MONOCYTES # (AUTO) 0.5 K/uL (2.0-10.0); MONOCYTES % (AUTO) 13.9 % (0.0-11.0); NEUTROPHILS # (AUTO) 2.3 K/uL (1.8-8.9); NEUTROPHILS % (AUTO) 62.6 % (38.5-71.5); PLATELET COUNT (AUTO) 156 K/uL (179-408); RED BLOOD CELL COUNT(AUTO) 4.06 MIL/uL (3.63-4.92); WHITE BLOOD COUNT (AUTO) 3.6 K/uL (3.8-11.8)
[2018-10-08 09:50] LABS: CARBON DIOXIDE 26 mmol/L (21-32); CHLORIDE 109 mmol/L (98-107); CREATININE 1.3 mg/dL (0.6-1.3); GLUCOSE 87 mg/dL (74-106); POTASSIUM 4.3 mmol/L (3.5-5.1); UREA NITROGEN, BLOOD 34 mg/dL (7-18)
[2018-10-08 09:57] LABS: ALANINE AMINOTRANSFERASE 54 U/L (14-59); ALKALINE PHOSPHATASE 84 U/L (50-136); ASPARTATE AMINOTRANSFERASE 28 U/L (15-37); BILIRUBIN,TOTAL 0.5 mg/dL (0.2-1.0); TOTAL PROTEIN, SERUM 6.3 g/dL (6.4-8.2)
--- NOTE | 2018-10-08 10:03 | NUR ---
SEEN AND EXAMINED BY DR ATKINS AND SAW LAB REPORT. NO ORDERS MADE.
[2018-10-08] MEDS ORDERED: TEMAZEPAM 7.5 MG CAPSULE PO PRN (12:00)
--- NOTE | 2018-10-08 12:30 | NUR ---
ASSISTED PT UP ON THE GERICHAIR WITH 2 PEOPLE ASSIST. PT UP TO THE BATHROOM, COLLECTED URINE FOR UA AND SENT TO LAB ORDERED. PT IS EATING AND FEEDING HERSELF.
[2018-10-08 13:12] LABS: *BILIRUBIN,URIN NEGATIVE (NEGATIVE); *BLOOD, URINE NEGATIVE (NEGATIVE); *CLARITY,URINE CLEAR (CLEAR); *COLOR,URINE YELLOW (YELLOW); *KETONES,URINE NEGATIVE (NEGATIVE); *UROBILINOGEN,URINE 0.2 E.U./dl (NORMAL); LEUKOCYTE ESTERASE ,URINE TRACE (NEGATIVE); NITRITE, URINE NEGATIVE (NEGATIVE); PH,URINE 8.5 (5.0-8.0); UGLUCOSE NEGATIVE (NEGATIVE)
[2018-10-08 13:22] LABS: BACTERIA,URINE FEW /HPF (NONE SEEN); RBC,URINE NONE SEEN /HPF (0-3); SQUAMOUS EPITHELIAL CELL,UR FEW /HPF (NONE SEEN)
[2018-10-08] MEDS ORDERED: OLANZAPINE 2.5 MG TABLET PO SCH (15:00)
[2018-10-08 16:00] VITALS: BP 100/47
--- NOTE | 2018-10-08 17:00 | NUR ---
PT WAS SLEEPING MOST AFTERNOON AND DR ATKINS IS AWARE.
[2018-10-08 20:27] VITALS: BP 100/45
--- NOTE | 2018-10-08 21:30 | NUR ---
Received patient up in bill chair, awake and calm. Patients blood pressures was slightly low 100/45 Dr. Pierce notified and said if BP doesn't increase to hold Risperdal. Offered snacks and water, rechecked blood pressure and was 121/56 HR 83, administered medications. Will continue to monitor.
--- NOTE | 2018-10-08 23:00 | NUR ---
Patient tolerated medications well. Attempted to put patient to bed, but patient tried climbing out of bed and is a fall risk. Assisted patient back to bill chair. Administered PRN medication Restoril. Will continue to monitor.
--- NOTE | 2018-10-09 01:49 | NUR ---
Assisted patient to restroom and to bed around 0030. Patient has been sleeping comfortably. No distress noted.
--- NOTE | 2018-10-09 06:36 | NUR ---
continues to sleep. no distress noted.
[2018-10-09 07:30] VITALS: BP 108/50
[2018-10-09] MEDS: DOCUSATE SODIUM 100 MG CAPSULE PO SCH (09:09)
[2018-10-09] MEDS: MEGESTROL ACETATE 400 MG/10 ML LIQUID UDC PO SCH (09:09)
[2018-10-09] MEDS: risperiDONE 0.25 MG TABLET PO SCH (09:09)
[2018-10-09] MEDS: DIVALPROEX SPRINKLE 125 MG CAP.SPRINK PO SCH ×2 (09:47→12:53)
--- NOTE | 2018-10-09 10:14 | NUR ---
Discharge Note: Patient will be discharged to back to [facility] [[address] [place] [address]; ] and transportation will be provided by ambulance at 1:00pm. Please arrange ambulance transportation for this patient. Acceptance to facility was received by Mitul, release coordinator, who states they are ready to accept the patient today. Patient is AxOx1, denies suicidal ideation, is able to plan for self-care, and is agreeable with discharge plan. relief worker has called and spoken with patient son, Wayne Gaming [[phone]], who is aware and agreeable with discharge plan. Patient will be followed by Dr. Maguire (porter bath) and Dr. Pierce (psychiatrist) at the facility. Patient has also been provided with mental health resources including [facility] Crisis Line [ ], [facility] [ ], and the National Suicide Prevention Lifeline [ ]
--- NOTE | 2018-10-09 10:27 | NUR ---
FIREARMS REPORT: Rug Setter [place] completed and submitted a [employer] firearms report for [address] Disability certification. A copy of report has been placed in patient chart.
--- NOTE | 2018-10-09 14:16 | NUR ---
Gps/High Lift Operator- Discharged planning in progress, patient had been sleeping most of the morning , able to drink ensure this am, routine meds. was administered with minimal prompting.
--- NOTE | 2018-10-09 14:29 | NUR ---
Gps/Pheresis Specialist- Called [facility], report was given to Cassie Loyola. All of patient's belongings packed will send with patient . special agent group insurance time was arranged for 0 .
[2018-10-09 16:00] VITALS: BP 115/54
--- NOTE | 2018-10-09 17:22 | NUR ---
Gps/Form Builder Helper- [place] (Nursing Supervor) from [facility],checking status of patient , time of discharge . Ambulance was running late., schedule of slate picker changed twice. Medication records faxed to Facility as requested.
--- NOTE | 2018-10-09 18:31 | NUR ---
Gps/Cloud Software Engineer Discharged to [facility] via ambulance, Patient was informed of her discharged. No distress, no discomfort noted. All belongings was given back to patient. Spoked to Sandra Matthews (Nursing Sup. at [facility] ) patient on her to their facility.
== END 2018-10-09 18:31 | DRG 885 ==
LOC: ER 19:56 → GPS 21:18
PROVIDERS: ADMIT Psychiatry & Neurology Psychiatry; ATTEND Nurse Practitioner Acute Care
DX: F25.0 Schizoaffective disorder, bipolar type (principal); F01.51 Vascular dementia, unspecified severity, with behavioral disturbance; E43 Unspecified severe protein-calorie malnutrition; B95.1 Streptococcus, group B, as the cause of diseases classified elsewhere; E87.0 Hyperosmolality and hypernatremia; Z68.1 Body mass index [BMI] 19.9 or less, adult; N39.0 Urinary tract infection, site not specified; Z66 Do not resuscitate; R62.7 Adult failure to thrive; E86.0 Dehydration; Z91.19 Patient's noncompliance with other medical treatment and regimen; Z79.899 Other long term (current) drug therapy; B96.20 Unspecified Escherichia coli [E. coli] as the cause of diseases classified elsewhere; M62.84 Sarcopenia; Z51.5 Encounter for palliative care; D69.6 Thrombocytopenia, unspecified
CPT/HCPCS: 36415; 80164; 80307; 83735; 84100; 85025; 87086; 97110; 97530; A4663; J2358; J3490; J8999